=== PATIENT | female | born 1945 | race Caucasian/White ===

== ENCOUNTER 2017-04-28 13:10 | Emergency (ER) | payer OTHER ==
[~2017-04-28] VITALS: Ht 167.6 cm; Wt 128.1 kg
[2017-04-28] MEDS ORDERED: ULTRACET1 TABLET PO (15:07)
[2017-04-28 16:14] VITALS: BP 143/98
== END 2017-04-28 16:15 | disposition home or self-care (01) ==
LOC: EME 13:10
PROC: 2W3FX1Z Immobilization of Left Hand using Splint (ICD-10-PCS; principal; 2017-04-28)
DX: S60.222A Contusion of left hand, initial encounter (principal); W19.XXXA Unspecified fall, initial encounter; I10 Essential (primary) hypertension
CPT/HCPCS: 73110; 99281; 99283